=== PATIENT | female | born 1970 | race Caucasian/White ===

== ENCOUNTER → 2017-02-18 | Outpatient (CLI) | payer OTHER, BC | END | disposition home or self-care (01) | LOC: RD 17:05 | DX: J98.11 Atelectasis (principal) ==

== ENCOUNTER 2018-03-14 12:26 | Emergency (ER) | payer OTHER ==
[~2018-03-14] VITALS: Ht 165.1 cm; Wt 79.1 kg
[2018-03-14 12:34] VITALS: BP 120/89; Ht 165.1 cm; Wt 79.1 kg
== END 2018-03-14 14:35 | disposition home or self-care (01) ==
LOC: ED 12:26
DX: S60.012A Contusion of left thumb without damage to nail, initial encounter (principal); S67.02XA Crushing injury of left thumb, initial encounter; Z88.6 Allergy status to analgesic agent; W23.0XXA Caught, crushed, jammed, or pinched between moving objects, initial encounter; Y93.89 Activity, other specified; Y92.89 Other specified places as the place of occurrence of the external cause; Y99.8 Other external cause status